=== PATIENT | female | born 1945 | race Caucasian/White ===

== ENCOUNTER → 2025-05-02 | Outpatient (CLI) | payer MEDICARE ==
--- NOTE | 2025-05-02 08:25 | US ---
EXAMINATION TYPE: US chest DATE OF EXAM: 05/02/2025 COMPARISON: XR(04/24/2025) CLINICAL INDICATION: Female, 79 years old with history of J90 PLEURAL EFFUSION; TECHNIQUE: Grayscale imaging of the chest. Targeted ultrasound of the posterior lower bilateral cristobal thoraces FINDINGS: EXAM MEASUREMENTS: Right Pleural Effusion pocket size: 9.4 cm Right skin surface to fluid distance: 2.1 cm Fluid to lung tissue: 3.1cm Left Pleural Effusion pocket size: Not enough fluid to safely drain for today's study Right side marked for possible thoracentesis outside the dept. Pulmonologists are able to review the images in the patient?s EMR. IMPRESSIONS: Moderate sized right pleural effusion. [facility], , 05/02/2025 8:23 AM
[2025-05-02 09:06] LABS: African American GFR (CKD) 70 (>60 ml/min/1.73 sqM); Blood Urea Nitrogen 53 mg/dL (7-17); Non-African American GFR(CKD) 60 (>60 ml/min/1.73 sqM)
--- NOTE | 2025-05-02 10:39 | CT ---
"EXAMINATION TYPE: CT chest w con CT DLP: 143.3 mGycm, Automated exposure control for dose reduction was used. DATE OF EXAM: 05/02/2025 9:25 AM COMPARISON: Ultrasound chest 05/02/2025, chest radiograph 04/25/2025 CLINICAL INDICATION:Female, 79 years old with history of R91.8 SPN; PHH, PULMONARY NODULE TECHNIQUE: Multiple axial images were obtained through the chest following the administration of 100 cc of Isovue 300. . Coronal and sagittal reformats reviewed. FINDINGS: LUNGS/ PLEURA: No pneumothorax. Small to moderate-sized left pleural effusion. Moderate size right p leural effusion. Multiple scattered solid round pulmonary nodules throughout the lungs. Examples incl ude a lingular nodule measuring up to 1.2 cm. A right lower lobe pulmonary nodule measuring up to 2.9 cm. Right lower lobe heterogenous pulmonary mass measuring up to 4.3 cm. Left lower lobe pulmonary m ass measuring up to 4.8 cm. Complete atelectasis of both lower lobes. AIRWAY: The trachea is patent with synechiae identified at the binta. There is abrupt cut off of the left lower bronchus suggesting occlusion/invasion. HEART: Size within normal limits. . No pericardial effusion. Mild coronary artery calcifications pres ent. MEDIASTINUM: Enlarged bilateral hilar adenopathy and mediastinal adenopathy. Examples include a right hilar 1.6 cm heterogenous lymph node. And a subcarinal 2.7 cm lymph node. Confluent appearance of th e adenopathy within the mediastinum. VASCULATURE: Atherosclerotic calcifications are present throughout the aorta and its branches. No th oracic aortic aneurysm. At least mild stenosis of the origins of the great vessels secondary to calci fied plaque. No evidence for central pulmonary embolism. MUSCULOSKELETAL: Multiple destructive heterogenous expansile soft tissue osseous lesions. There is in volvement of the T12, L1, L2, and L3 vertebral bodies. Destructive osseous lesions involving the ster num. Multiple destructive osseous lesions involving the ribs. Most prominently involving the right an terior lateral fourth and fifth ribs. No involvement of the bilateral scapula. SOFT TISSUES/LYMPH NODES: Diffuse anasarca. Multiple enlarged heterogenous centrally hypoechoic proba gabby necrotic bilateral axillary lymph nodes with examples including a right lymph node measuring up t o 1.9 cm short axis and a left lymph node measuring up to 2.0 cm short axis. There is a left breast m ass and/or adenopathy measuring 3.9 cm. LOWER NECK: Atrophy of the thyroid gland. UPPER ABDOMEN: Left hepatic lobe 3.7 cm ill-defined heterogenous hypodense lesion. Additional right h epatic lobe peripheral 2.8 cm heterogenous hypodense lesion. Additional 1.2 cm left hepatic lobe hypo dense lesion. Nonobstructing left renal calculus. Mildly enlarged 1.1 cm left periaortic lymph node. Mild intrahepatic biliary ductal dilatation. IMPRESSION: 1. Findings consistent with extensive metastatic disease of unknown primary. Innumerable pulmonary no dules/masses, necrotic appearing bilateral axillary, periaortic, mediastinal and bilateral hilar kali opathy. Left breast mass measuring 3.9 cm which may represent breast malignancy and/or metastasis. Mu ltiple destructive soft tissue osseous lesions. Hepatic metastatic lesions. 2. Abrupt cut off of the left lower lobe bronchus with atelectasis of the left lower lobe. Suggested invasion/mass effect upon the left lower lobe bronchus from adjacent adenopathy/masses. 3. Small to moderate left and moderate right pleural effusions with associated atelectasis. 4. Nonspecific mild intrahepatic biliary duct dilatation. Correlate with biliary labs. A [place] level critical message alert has been initiated for Sam Philip DO via the [employer] 36 0 | Critical Results System on 05/02/2025 10:37 AM. This message alert has been sent to Sam Philip DO via the preferences provided by the clinician for the receipt of Radiology Critical Findings. Or ssage ID [id number]. [facility], , 05/02/2025 10:37 AM"
== END | disposition home or self-care (01) ==
LOC: RADUSWWP 07:51
PROVIDERS: ATTEND Internal Medicine Critical Care Medicine
DX: J90 Pleural effusion, not elsewhere classified (principal); C78.7 Secondary malignant neoplasm of liver and intrahepatic bile duct; N60.42 Mammary duct ectasia of left breast
CPT/HCPCS: 82565; 84520; 76604; 71260; 36415; Q9967